=== PATIENT | male | born 1985 | race Caucasian/White ===

== ENCOUNTER 2021-03-06 09:51 | Outpatient (REF) | payer OTHER, SELFPAY ==
[2021-03-06 10:22] LABS: MANUAL DIFF FLAG NO
[2021-03-06 10:59] LABS: Basophils Absolute Auto 0.1 X10*3/uL (0.0-0.2); Basophils Percent Auto 0.9 % (0-2); Eosinophils Absolute Auto 0.4 X10*3/uL (0.0-0.4); Eosinophils Percent Auto 4.5 % (0-4); Hematocrit 39.6 % (42.0-52.0); Hemoglobin 13.6 g/dl (14.0-18.0); Imm Gran Abs Auto 0.04 X10*3/uL (0.00-0.03); Imm Gran Pct Auto 0.5 % (0.0-0.4); Lymphocytes Absolute Auto 2.3 X10*3/uL (1.2-4.9); Lymphocytes Percent Auto 26.9 % (20-40); Mean Corpuscular HGB Conc 34.3 g/dl (31.0-36.0); Mean Corpuscular Hemoglobin 29.8 pg (27.0-33.0); Mean Corpuscular Volume 86.8 fL (80.0-98.0); Mean Platelet Volume 9.3 fL (9.4-12.4); Monocytes Absolute Auto 1.1 X10*3/uL (0.1-1.2); Monocytes Percent Auto 12.5 % (2-11); Neutrophils Absolute Auto 4.65 x10*3/uL (2.0-8.3); Neutrophils Percent Auto 54.7 % (45-73); Platelet Count 359 X10*3/uL (160-400); Red Blood Count 4.56 X10*6/uL (4.60-5.80); Red Cell Distribution Width 13.6 % (11.0-16.0); White Blood Count 8.5 X10*3/uL (4.8-10.8)
[2021-03-06 11:17] LABS: Alanine Aminotransferase 45 U/L (0-40); Albumin Level 3.9 g/dL (3.5-5.0); Alkaline Phosphatase 65 U/L (39-117); Anion Gap 14 (12-20); Aspartate Amino Transferase 31 U/L (5-37); Bilirubin Total 0.5 mg/dL (0.0-1.0); Blood Urea Nitrogen 18 mg/dL (9-16); Calcium 9.1 mg/dL (8.4-10.2); Carbon Dioxide 25 mmol/L (22-29); Chloride 103 mmol/L (96-108); Estimated Glomerular Filt Rate > 60; Glucose Random 96 mg/dL (60-115); Sodium 138 mmol/L (135-145); Total Protein 7.1 g/dL (6.5-8.0)
[2021-03-06 11:55] LABS: Gamma Glutamyl Transpeptidase 49 U/L (11-51)
[2021-03-07 14:07] LABS: HCV RNA PCR Qn <1.18 NOT DETECTED Log IU/mL (NOT DETECTED); HCV RNA PCR Qn <15 NOT DETECTED IU/mL (NOT DETECTED)
[2021-03-08 03:42] LABS: HBS Num1 566.79 mIU/mL (0-7.99); HBc Num1 0.12 S/CO (0.00-0.79); HBsAGNum1 0.16 S/CO (0.00-0.99); HIV AB/AG Nonreactive (Nonreactive); HIV Num 1 0.17 S/CO (0.00-0.99); Hepatitis B Core Antibody Nonreactive (Nonreactive); Hepatitis B Surface Antigen Negative (Negative); ~Hepatitis B Surface Antibody REACTIVE (Nonreactive)
[2021-03-08 03:52] LABS: ~HepC Num1 17.54 S/CO (0.00-0.79); ~Hepatitis C Antibody Reactive (Nonreactive)
[2021-03-10 08:58] LABS: Hepatitis A Antibody IgG REACTIVE (Nonreactive); ~Hepatitis A Antibody IgG 7.54 S/CO (0.00-0.99)
== END 2021-03-06 09:52 | disposition home or self-care (01) ==
LOC: HO.LAB 09:51
PROVIDERS: PCP Internal Medicine; Visit Provider Preventive Medicine Addiction Medicine
DX: F11.20 Opioid dependence, uncomplicated (principal)
CPT/HCPCS: 36415; 80053; 82977; 85025; 86704; 86706; 86708; 86803; 87340; 87389; 87522; 87902

== ENCOUNTER → 2022-10-10 15:51 | Outpatient (BNVA) | payer OTHER, SELFPAY | PROVIDERS: PCP Internal Medicine; Visit Provider Nurse Practitioner Psychiatric/Mental Health | DX: F11.20 Opioid dependence, uncomplicated (principal); F14.20 Cocaine dependence, uncomplicated | CPT/HCPCS: 80305; 99202 ==

== ENCOUNTER → 2022-10-31 15:59 | Outpatient (BNVA) | payer OTHER, SELFPAY | PROVIDERS: PCP Internal Medicine; Visit Provider Nurse Practitioner Psychiatric/Mental Health | DX: F11.20 Opioid dependence, uncomplicated (principal) | CPT/HCPCS: 80305; 99212 ==

== ENCOUNTER 2022-12-22 15:11 | Outpatient (AMB) | payer OTHER, SELFPAY ==
--- NOTE | 2022-12-22 15:32 | MHC.OFFVIS ---
Intake Vital Signs 12/22/22 15:35 BP 104/68 Blood Pressure Location Lt radial Position Sitting Pulse 84 Pulse Source Pulse Oximeter Pulse Oximetry (%) 97 Oxygen Delivery Method Room Air Intake Visit Reasons: MAT Visit Intake Note: the patient presents for a mat visit [employer] Worker Required: No Allergies No Known Allergies Allergy (Verified 12/22/22 15:36) Do you need a note to return to daycare/school/sports/work: No HPI MAT Visit HPI Details Patient presents for [facility] follow up Has not been seen for several months Using cocaine for 2-3 day binges not sleeping, appetite decreased Using IV opioids daily Patient tearful during visit, expressing frustration with ongoing substance use. Review of Systems Const Reports as per HPI Physical Exam Vital Signs: Last Vital Signs Pulse 84 12/22/22 15:35 BP 104/68 12/22/22 15:35 Pulse Ox 97 12/22/22 15:35 Oxygen Delivery Method Room Air 12/22/22 15:35 Const General: cooperative, alert and awake Psych Appearance: grossly normal Speech and movement: Clear speech present and Restless speech present Thought process: Circumstantial thought process present Insight: Fair insight present (Psych) Assessment & Plan Assessment & Plan (1) Opioid use disorder, severe, dependence: Code(s): F11.20 - Opioid dependence, uncomplicated Plan: Restart Suboxone at 12 mg b.i.d. Patient will start Topamax at 25 mg daily to address cocaine cravings and work towards decreasing cocaine use Refilled clonidine Follow-up 4 weeks--RN to check in next week Medications: Refilled buprenorphine-naloxone 12-3 mg (Suboxone) 1 film buccal BID 28 ea 1RF Coding Level of Care Code Est Pt Level 4 (62021) Diagnoses Opioid use disorder, severe, dependence F11.20
[2022-12-22 15:35] VITALS: BP 104/68; PULSE 84; O2SAT 97
== END 2022-12-22 16:27 | disposition home or self-care (01) ==
LOC: HO.HCC 15:11
PROVIDERS: PCP Internal Medicine; Visit Provider Nurse Practitioner Psychiatric/Mental Health
DX: F11.20 Opioid dependence, uncomplicated (principal)
CPT/HCPCS: 99214

== ENCOUNTER → 2022-12-22 15:11 | Outpatient (BNVA) | payer OTHER, SELFPAY | PROVIDERS: PCP Internal Medicine; Visit Provider Nurse Practitioner Psychiatric/Mental Health | DX: F11.20 Opioid dependence, uncomplicated (principal) | CPT/HCPCS: 99212 ==